=== PATIENT | female | born 1975 | race African-American/Black ===

== ENCOUNTER 2018-04-15 12:04 | Emergency (ER) | payer SELFPAY ==
[2018-04-15 12:08] VITALS: BP 137/84
--- NOTE | 2018-04-15 12:59 | ER Document Report ---
HPI - HPI Time Seen by Provider: 04/15/18 12:38 Pain Level: 3 Notes: Patient is a 42-year-old female who presents with chief complaints of facial pain, sinus pressure, congestion and intermittent chills. She states that her symptoms started approximately 2 weeks ago. Patient reports history of sinusitis in the past, states this feels the same. Denies any nausea, vomiting or diarrhea. - REPRODUCTIVE Reproductive: DENIES: : Past Medical History - General Information source: Patient - Social History Smoking Status: Current Every Day Smoker Frequency of alcohol use: None Drug Abuse: None Family History: Reviewed & Not Pertinent Patient has suicidal ideation: No Patient has homicidal ideation: No - Medical History Medical History: Negative Renal/ Medical History: Denies: Hx Peritoneal Dialysis Surgical Hx: Negative - Immunizations Immunizations up to date: Yes Vertical Provider Document - CONSTITUTIONAL Notes: PHYSICAL EXAMINATION: GENERAL: Well-appearing, well-nourished and in no acute distress. HEAD: Atraumatic, normocephalic. EYES: Pupils equal round extraocular movements intact, conjunctiva are normal. ENT: Nares patent with clear rhinorrhea. Tenderness to palpation over frontal and maxillary sinuses. Bilateral TMs unremarkable. NECK: Normal range of motion, no palpable cervical lymphadenopathy. LUNGS: No respiratory distress Musculoskeletal: Normal range of motion NEUROLOGICAL: Normal speech, normal gait. PSYCH: Normal mood, normal affect. SKIN: Warm, Dry, normal turgor, no rashes or lesions noted. Course - Re-evaluation Re-evalutation: Patient with significant tenderness with palpation over maxillary and frontal sinuses. Patient's symptoms have been going on for at least 2 weeks. We will treat patient for sinusitis with antibiotics. Discussed ED return precautions with patient. Patient will follow up with PCP. - Vital Signs Vital signs: Temp Pulse Resp BP Pulse Ox 98.7 F 97 16 137/84 H 99 04/15/18 12:07 04/15/18 12:07 04/15/18 12:07 04/15/18 12:07 04/15/18 12:07 Discharge - Discharge Clinical Impression: Acute frontal sinusitis Qualifiers: Recurrence: recurrent Qualified Code(s): J01.11 - Acute recurrent frontal sinusitis Condition: Stable Disposition: HOME, SELF-CARE Additional Instructions: Sinusitis You have sinusitis, an infection of the sinus cavities of the face. The sinuses are air-filled chambers which open into the inside of the nose. Bacteria and pus fill a sinus, causing pain, drainage, and fever. Sinusitis is treated with antibiotics. Often, expectorants (to thin the sinus mucous) or decongestants (to reduce swelling) are prescribed as well. Healing requires seven to 10 days. Avoid chemical fumes, pollens, dusts, and smoke (especially cigarette smoke). Keep the air humidified in your bedroom and work area and take plenty of liquids by mouth. This condition can be serious if the infection spreads. If your symptoms worsen, or if you develop severe headache, high fever, stiff neck, or a rash, you must call the doctor or return for re-evaluation. Prescriptions: Amox Tr/Potassium Clavulanate [Augmentin 875-125 mg Tablet] 1 tab PO BID #20 tablet Forms: Return to Work Referrals: VIDA,NO [NO LOCAL MD] - Follow up as needed
== END 2018-04-15 13:09 | disposition home or self-care (01) ==
LOC: ER 12:04
DX: J01.11 Acute recurrent frontal sinusitis (principal); R51 Headache; R09.81 Nasal congestion; F17.200 Nicotine dependence, unspecified, uncomplicated
CPT/HCPCS: 99283